=== PATIENT | male | born 1945 | race Caucasian/White ===

== ENCOUNTER 2023-07-28 00:18 | Day surgery (SDC) | payer OTHER, SELFPAY ==
[2023-07-19 10:45] VITALS: BMI 27.8
[2023-07-28 09:10] VITALS: BP 166/64; PULSE 64; RESP 18; TEMP 36.1; O2SAT 99; BMI 27.6
[2023-07-28] MEDS: LACTATED RINGERS 1,000 ML 150 ML IV CONT (09:28)
--- NOTE | 2023-07-28 09:49 | WPDANESEPPF ---
Anes - Initial Pre Proc Eval Procedure: Operation Date: 07/28/23 10:30 Proposed Procedures p Screening Colonoscopy - Clark Rose MD Date/Time: 07/28/23 09:49 Surgeon: Clark Rose MD Pre Op Diagnosis: neoplasm screening Patient Data Age: 78 Gender: M Height: 1.73 m Weight: 82.5 kg Last Vital Signs Temp 97.0 F L 07/28/23 09:10 Pulse 64 07/28/23 09:10 Resp 18 07/28/23 09:10 BP 166/64 H 07/28/23 09:10 Pulse Ox 99 07/28/23 09:10 O2 Del Method Room Air 07/28/23 09:10 Allergies Allergy/AdvReac Type Severity Reaction Status Date / Time No Known Allergies AdvReac Unknown Verified 07/28/23 09:16 Home Medications Medication Instructions Recorded Confirmed Type amlodipine 5 mg tablet 5 mg PO DAILY 07/15/23 07/28/23 History carvedilol 6.25 mg tablet 6.25 mg PO Q12H #60 tabs 07/15/23 07/28/23 Rx cholecalciferol (vitamin D3) 25 25 mcg PO DAILY 07/15/23 07/28/23 History mcg (1,000 unit) capsule lisinopril 20 mg tablet 20 mg PO DAILY 07/15/23 07/28/23 History multivitamin with iron (Daily 1 tablet PO DAILY 07/15/23 07/28/23 History Multiple Vitamins with Iron tablet) omega-3 fatty acids 1,000 mg 1,000 mg PO DAILY 07/15/23 07/28/23 History capsule omeprazole 10 mg capsule,delayed 10 mg PO DAILY 07/15/23 07/28/23 History release rosuvastatin 10 mg tablet 10 mg PO DAILY 07/15/23 07/28/23 History Patient hx anesthesia problems: none Family hx anesthesia problems: none Results Review: All pre-operative results and documents have been reviewed as part of the pre-operative evaluation. [facility] Social History Social History (Updated 07/19/23 @ 11:11 by Marita Amaya RN) Smoking status: Never smoker Alcohol intake: never Substance use: never Substance use type: does not use Living arrangements: with family Occupation/Education: retired Gender identity (if verbalized by the patient): Male Sexual Orientation (if Verbalized by the Patient): Straight or Heterosexual Spiritual care concerns: No Anes - Eval Final PreProcedure Day of Procedure 07/28/23 09:49 Patient weight: normal Heart: regular rate and rhythm Lungs: clear to auscultation Neurological: alert and oriented Last oral intake: >/= 8 hours Emergent: no Anesthetic plan: proceed Results Review: All pre-operative results and documents have been reviewed as part of the pre-operative evaluation. Informed Consent: The patient's anesthetic plan and its attendant risks and benefits were discussed with the patient/family/POA. Questions were solicited and answers provided to the satisfaction of the patient/family/POA.
--- NOTE | 2023-07-28 10:14 | PM.HPGS ---
History of Present Illness History of Present Illness Consent: Risks, benefits, and alternatives have been discussed and questions answered. Patient agrees to proceed with procedure. Chief complaint: neoplasm screening Narrative: Bharath Mane is a 78 year old male with colon polyp 4 years ago Review of Systems Constitutional: Constitutional: Denies headache(s) and Denies weakness Eyes: Eyes: Denies blurry vision ENT: Reports Normal hearing present, Denies headache(s) and Denies neck pain Cardiovascular: Cardiovascular: Denies chest pain and Denies dyspnea Respiratory: Respiratory: Denies dyspnea Gastrointestinal: Gastrointestinal: Reports no additional gastrointestinal complaints Genitourinary: Genitourinary: Denies dysuria Musculoskeletal: Musculoskeletal: Denies neck pain Integumentary/Breasts: Skin/Breast: Denies dry skin Neurologic: Reports Normal hearing present, Denies headache(s) and Denies weakness Psychiatric: Psychiatric: Denies anxiety Endocrine: Endocrine: Denies change in body appearance Hematologic/Lymphatic: Hematologic/Lymphatic: Denies easy bleeding Allergic/Immunologic: Allergic/Immunologic: Denies urticaria PMFSH Past Medical History Medical History (Updated 07/28/23 @ 10:15 by Clark Rose MD) Colon polyp Social History Social History (Updated 07/19/23 @ 11:11 by Marita Amaya RN) Smoking status: Never smoker Alcohol intake: never Substance use: never Substance use type: does not use Living arrangements: with family Occupation/Education: retired Gender identity (if verbalized by the patient): Male Sexual Orientation (if Verbalized by the Patient): Straight or Heterosexual Spiritual care concerns: No Meds Home Medications and Allergies Home Medications Medication Instructions Recorded Confirmed Type amlodipine 5 mg tablet 5 mg PO DAILY 07/15/23 07/28/23 History carvedilol 6.25 mg tablet 6.25 mg PO Q12H #60 tabs 07/15/23 07/28/23 Rx cholecalciferol (vitamin D3) 25 25 mcg PO DAILY 07/15/23 07/28/23 History mcg (1,000 unit) capsule lisinopril 20 mg tablet 20 mg PO DAILY 07/15/23 07/28/23 History multivitamin with iron (Daily 1 tablet PO DAILY 07/15/23 07/28/23 History Multiple Vitamins with Iron tablet) omega-3 fatty acids 1,000 mg 1,000 mg PO DAILY 07/15/23 07/28/23 History capsule omeprazole 10 mg capsule,delayed 10 mg PO DAILY 07/15/23 07/28/23 History release rosuvastatin 10 mg tablet 10 mg PO DAILY 07/15/23 07/28/23 History Allergies Allergy/AdvReac Type Severity Reaction Status Date / Time No Known Allergies AdvReac Unknown Verified 07/28/23 09:16 Vital Signs Vital Signs - 24 hr 07/28/23 09:10 Temperature 97.0 F L Pulse Rate 64 Respiratory Rate 18 Blood Pressure 166/64 H Pulse Oximetry 99 Oxygen Delivery Room Air Exam Const: General: comfortable and no acute distress HENMT: Face/Nose/Sinus: Normal nares present Eyes: General: appearance normal, both eyes and all related structures Neck: Neck: no JVD Resp: Auscultation: clear to auscultation bilaterally Cardio: Rate: regular rate Rhythm: regular rhythm GI: Inspection: non-distended GI Palp: Yes Soft to palpation Skin: General skin exam: normal color Neuro: General: gait normal Speech: normal speech Extrem: General: normal to inspection Psych: Mental Status: mental status grossly normal Assessment and Plan Assessment and plan (1) Colon polyp: Code(s): K63.5 - Polyp of colon Status: Acute Assessment and Plan: colonoscopy
[2023-07-28 10:29] VITALS: BP 114/62; PULSE 68; RESP 18; O2SAT 98
[2023-07-28 10:39] VITALS: BP 129/68; PULSE 58; RESP 19; O2SAT 98
[2023-07-28 10:49] VITALS: BP 131/62; PULSE 61; RESP 18; O2SAT 97
== END 2023-07-28 10:57 | disposition home or self-care (01) ==
PROVIDERS: PCP Family Medicine; Visit Provider Internal Medicine Gastroenterology
PROC: 0DJD8ZZ Inspection of Lower Intestinal Tract, Via Natural or Artificial Opening Endoscopic (ICD-10-PCS; CPT 45378; principal; 2023-07-28 10:30)
DX: Z12.11 Encounter for screening for malignant neoplasm of colon (principal); Z86.010 Personal history of colon polyps
CPT/HCPCS: G0105; J2704; J7120